=== PATIENT | female | born 1985 | race African-American/Black ===

== ENCOUNTER 2016-09-19 15:25 | Emergency (ER) | payer MEDICAID ==
[~2016-09-19] VITALS: Ht 182.9 cm; Wt 68.2 kg
[~2016-09-19 15:25] MED LIST: CIPRO500 MG OR; PYRIDIUM200 MG OR
[2016-09-19 16:03] LABS: HEMATOCRIT 30.2 % (37.0-47.0); IMMATURE GRANULOCYTES 1.4 % (0.0-1.0); MEAN CELL VOLUME 67.1 fL CALC (80.0-100.0); MEAN CORPUSCULAR HGB CONC 29.8 g/L CALC (32.0-36.0); NEUT# 9.4 thou/uL (2.00-7.15); RED BLOOD COUNT 4.5 mill/uL (4.20-5.60); RED CELL DISTRI WIDTH 18.3 % (11.5-15.5)
[2016-09-19 16:12] LABS: ALBUMIN 4.6 g/dL (3.2-5.0); ALKALINE PHOSPHATASE 78 u/l (38-126); AMYLASE 66 u/l (30-110); ANION GAP 17 (6-22 (CALC)); BILIRUBIN, TOTAL 0.3 mg/dL (0.0-1.4); BUN 12 mg/dL (7-17); BUN/CREATININE RATIO 18 (12-20 (CALC)); CALCIUM 9.5 mg/dL (8.4-10.2); CARBON DIOXIDE 25 mmol/l (22-30); CHLORIDE 100 mmol/l (95-108); CREATININE 0.7 mg/dL (0.5-1.0); GFR > 60 ML/MIN (>=60 (CALC)); GFR FOR AFR.AMER. > 60 ML/MIN (>=60 (CALC)); GLUCOSE 120 mg/dL (65-105); LIPASE 95 u/l (23-300); POTASSIUM 3.3 mmol/l (3.5-5.1); SGOT/AST 30 u/l (14-36); SGPT/ALT 18 u/l (9-52); SODIUM 139 mmol/l (137-146); TOTAL PROTEIN 9.7 g/dL (6.3-8.2)
[2016-09-19] MEDS ORDERED: ELIQUIS5 MG PO (16:12)
[2016-09-19] MEDS ORDERED: NORVIR100 M1 PO (16:13)
[2016-09-19] MEDS ORDERED: ALBUTEROL SUL0.083 % IN (16:13)
[2016-09-19] MEDS ORDERED: AMITRIPTYLIN10 MG PO (16:13)
[2016-09-19 16:24] LABS: MYOGLOBIN 21 ng/mL (0 - 62)
[2016-09-19] MEDS ORDERED: ONDANSETRON4 MG PO (16:30)
[2016-09-19 16:31] LABS: ACT PARTIAL THROMBO TIME 19.5 SECONDS (20.0-32.5); PROTHROMBIN TIME 10.3 SECONDS (9.0-12.5)
[2016-09-19] MEDS ORDERED: DOXYCYCL HYC100 MG PO (16:31)
[2016-09-19] MEDS ORDERED: NAPROSYN250 MG PO (16:32)
[2016-09-19] MEDS ORDERED: PAROXETINE20 MG PO (16:32)
[2016-09-19] MEDS ORDERED: HYDROCHLOROTHIA50 MG PO (16:33)
[2016-09-19] MEDS ORDERED: LORTAB 5-325 MG1 TAB PO (16:51)
[2016-09-19 16:54] VITALS: BP 132/81
== END 2016-09-19 17:29 | disposition home or self-care (01) | DRG 313 ==
LOC: ED 15:25
PROVIDERS: Emergency Medicine
DX: R07.9 Chest pain, unspecified (principal); J45.909 Unspecified asthma, uncomplicated; Z86.711 Personal history of pulmonary embolism; Z79.01 Long term (current) use of anticoagulants; Z21 Asymptomatic human immunodeficiency virus [HIV] infection status